=== PATIENT | female | born 1970 | race Caucasian/White ===

== ENCOUNTER 2020-04-12 14:38 | Emergency (ER) | payer SELFPAY ==
[~2020-04-12] VITALS: Ht 165.1 cm; Wt 70.0 kg
[2020-04-12 14:40] VITALS: BP 154/79
== END 2020-04-12 15:10 | disposition left against medical advice (07) ==
LOC: ER 14:38
DX: R22.31 Localized swelling, mass and lump, right upper limb (principal); Z53.21 Procedure and treatment not carried out due to patient leaving prior to being seen by health care provider